=== PATIENT | female | born 1985 | race African-American/Black ===

== ENCOUNTER 2017-07-16 22:58 | Emergency (ER) | payer SELFPAY ==
[~2017-07-16] VITALS: Ht 152.4 cm; Wt 90.0 kg
[2017-07-17 04:16] LABS: BASOPHILS % 0.6 % (0.0-2.0); EOSINOPHILS % 1.2 % (0.0-5.0); HEMOGLOBIN. 14.4 g/dL (12.0-16.0); LYMPHOCYTES % 28.9 % (20.0-50.0); MEAN CORPUSCULAR VOLUME 80.9 fL (81.0-99.0); MEAN PLATELET VOLUME 8.8 fl (7.4-10.4); MONOCYTES % 4.9 % (2.0-8.0); NEUTROPHILS % 64.4 % (40.0-76.0); PLATELET 292 x1000/uL (130-400); RED BLOOD CELL COUNT 5.31 mill/uL (4.2-5.4); RED CELL DISTRIBUTION WIDTH 13.4 % (11.6-14.6)
[2017-07-17 04:23] LABS: CHLORIDE 103 mEq/L (98-107)
[2017-07-17 04:32] LABS: CARBON DIOXIDE 26 mEq/L (21-32)
[2017-07-17 05:05] VITALS: BP 117/65
[2017-07-17 05:36] LABS: CLARITY URINE CLEAR (CLEAR); COLOR URINE YELLOW (YELLOW); KETONES URINE NEGATIVE (NEGATIVE); LEUKOCYTE ESTERASE URINE NEGATIVE (NEGATIVE); NITRITE URINE NEGATIVE (NEGATIVE); OCCULT BLOOD URINE NEGATIVE (NEGATIVE); PH URINE 7.5 (4.5-8.0); PROTEIN URINE NEGATIVE (NEGATIVE); SPECIFIC GRAVITY URINE 1.009 (1.005-1.030); UROBILINOGEN URINE 0.2 E.U./dL (0.2-1.0)
== END 2017-07-17 05:52 | disposition home or self-care (01) ==
LOC: ER 22:58
DX: K21.9 Gastro-esophageal reflux disease without esophagitis (principal); M10.9 Gout, unspecified
CPT/HCPCS: 36415; 71010; 80053; 81003; 81025; 85025; 93005; 99285

== ENCOUNTER 2018-08-25 14:59 | Inpatient (IN) | payer MEDICAID ==
[~2018-08-25] VITALS: Ht 165.1 cm; Wt 88.5 kg
[2018-08-25] MEDS ORDERED: SODIUM CHLORIDE 0.9% 1000ML BAG (SEPSIS BOLUS) IV ONE (16:30)
[2018-08-25 17:18] LABS: CHLORIDE 100 mEq/L (98-107)
[2018-08-25 17:21] LABS: HEMATOCRIT. 45.5 % (36.0-48.0); HEMOGLOBIN. 15.1 g/dL (12.0-16.0); MEAN CORPUSCULAR HEMOGLOBIN 26.9 pg (28.0-32.0); MEAN PLATELET VOLUME 8.5 fl (7.4-10.4); PLATELET 272 x1000/uL (130-400); RED BLOOD CELL COUNT 5.61 mill/uL (4.2-5.4)
[2018-08-25 17:28] LABS: HCG SCREEN NEGATIVE
[2018-08-25 17:40] LABS: PLATELET ESTIMATE NORMAL
[2018-08-25 17:43] LABS: INR 1.1
[2018-08-25 18:07] LABS: CLARITY URINE CLEAR (CLEAR); COLOR URINE YELLOW (YELLOW); KETONES URINE TRACE (NEGATIVE); LEUKOCYTE ESTERASE URINE NEGATIVE (NEGATIVE); NITRITE URINE NEGATIVE (NEGATIVE); OCCULT BLOOD URINE 2+ (NEGATIVE); PROTEIN URINE NEGATIVE (NEGATIVE); SPECIFIC GRAVITY URINE 1.024 (1.005-1.030)
[2018-08-25] MEDS ORDERED: MORPHINE SULFATE 2 MG/ML CPJ (NOT FOR IM USE) IV ONE (19:45)
[2018-08-25] MEDS ORDERED: ONDANSETRON HCL 4MG/2ML INJ IV ONE (19:45)
[2018-08-25] MEDS ORDERED: CLONIDINE 0.1MG TABLET PO PRN (20:45)
[2018-08-25] MEDS ORDERED: ONDANSETRON HCL 4MG/2ML INJ IV PRN (20:45)
[2018-08-25] MEDS ORDERED: MAGNESIUM/ALUMINUM HYDROXIDE/SIMETHICONE 30ML UDC PO PRN (20:45)
[2018-08-25] MEDS ORDERED: ACETAMINOPHEN 325MG TABLET PO PRN (20:45)
[2018-08-25] MEDS ORDERED: DOCUSATE SODIUM 100MG CAPSULE PO PRN (20:45)
[2018-08-25] MEDS ORDERED: IPRATROPIUM/ALBUTEROL 0.5-3(2.5)MG/3ML NEB INH PRN (20:45)
[2018-08-25 20:51] LABS: *AMPHETAMINES SCREEN URINE NEGATIVE (NEGATIVE); *BARBITURATES SCREEN URINE NEGATIVE (NEGATIVE); *BENZODIAZEPINES SCREEN URINE NEGATIVE (NEGATIVE); *COCAINE SCREEN URINE NEGATIVE (NEGATIVE)
[2018-08-25 20:52] LABS: CANNABINOID URINE SCREEN NEGATIVE (NEGATIVE); METHADONE URINE SCREEN NEGATIVE (NEGATIVE); OPIATES URINE SCREEN NEGATIVE (NEGATIVE); PHENCYCLIDINE URINE SCREEN NEGATIVE (NEGATIVE)
[2018-08-25 22:13] LABS: CHLORIDE 104 mEq/L (98-107)
[2018-08-25 22:22] LABS: CREATINE KINASE 68 IU/L (26-192)
[2018-08-25 22:23] LABS: CREATINE KINASE MB FRACTION < 1.0 ng/mL (0.5-3.6)
[2018-08-25] MEDS ORDERED: CEFTRIAXONE 1 G PREMIX 50 ML IV ONE (23:00)
[2018-08-26] VITALS (25 sets, daily range): BP systolic 88–137; BP diastolic 43–79
[2018-08-26] MEDS: SODIUM CHLORIDE 0.9% 1,000 ML IV SCH ×3 (06:00→19:58)
[2018-08-26 08:30] LABS: BASOPHILS % 0.3 % (0.0-2.0); EOSINOPHILS % 0.1 % (0.0-5.0); HEMATOCRIT. 40.2 % (36.0-48.0); HEMOGLOBIN. 13.3 g/dL (12.0-16.0); MEAN CORPUSCULAR HEMOGLOBIN 26.9 pg (28.0-32.0); MEAN CORPUSCULAR VOLUME 81.4 fL (81.0-99.0); MEAN PLATELET VOLUME 8.6 fl (7.4-10.4); MONOCYTES % 7.2 % (2.0-8.0); NEUTROPHILS % 73.4 % (40.0-76.0); PLATELET 223 x1000/uL (130-400); RED BLOOD CELL COUNT 4.94 mill/uL (4.2-5.4)
[2018-08-26] MEDS: ENOXAPARIN 40MG/0.4ML SYR SUBCUT SCH (08:44)
[2018-08-26 09:04] LABS: LDL CHOLESTEROL 114 mg/dL (5-100)
[2018-08-26 09:05] LABS: CREATINE KINASE 60 IU/L (26-192)
[2018-08-26 09:06] LABS: HDL CHOLESTEROL 47 mg/dL (40-59)
[2018-08-26 09:08] LABS: CREATINE KINASE MB FRACTION < 1.0 ng/mL (0.5-3.6)
[2018-08-26] MEDS ORDERED: INFLUENZA VIRUS VACCINE(AFLURIA) 0.5ML SYR IM ONE (10:00)
[2018-08-27] VITALS (7 sets, daily range): BP systolic 87–156; BP diastolic 45–82
[2018-08-27] MEDS: SODIUM CHLORIDE 0.9% 1,000 ML IV SCH ×2 (07:04→11:06)
[2018-08-27] MEDS: ENOXAPARIN 40MG/0.4ML SYR SUBCUT SCH (09:00)
== END 2018-08-27 11:15 | disposition home or self-care (01) | DRG 54 ==
LOC: ER 14:59 → EDBEDREQ 20:36 → EDBEDREQTM 20:36 → EDBEDREQSVC 20:36 → ENRESERV 22:00 → EDBEDREQTM 22:42 → EDBEDREQSVC 22:42 → EDBEDREQTM 22:44 → ENRESERV 22:50 → 5EST 22:58
PROVIDERS: ADMIT Internal Medicine; ATTEND Internal Medicine
DX: G43.909 Migraine, unspecified, not intractable, without status migrainosus (principal); R65.10 Systemic inflammatory response syndrome (SIRS) of non-infectious origin without acute organ dysfunction; D72.829 Elevated white blood cell count, unspecified; N92.6 Irregular menstruation, unspecified
CPT/HCPCS: 36415; 71045; 74176; 80048; 80061; 80305; 82550; 82553; 83605; 83735; 84145; 84443; 84484; 84703; 85379; 87804; 90686; 93005; 93970; 96361; 96365; 96375; 99285; J0696; J1650; J2270; J2405; J7030; J7040

== ENCOUNTER 2022-06-26 08:38 | Emergency (ER) | payer MEDICAID, OTHER ==
[~2022-06-26] VITALS: Ht 167.6 cm; Wt 101.0 kg
[~2022-06-26 08:38] MED LIST: TUSSL MT
[2022-06-26] MEDS ORDERED: IBUPROFEN 600MG TABLET PO ONE (10:45)
[2022-06-26 11:02] VITALS: BP 115/64
[2022-06-26] MEDS ORDERED: TAM75 MT (11:05)
== END 2022-06-26 11:41 | disposition home or self-care (01) ==
LOC: ER 08:53
DX: J06.9 Acute upper respiratory infection, unspecified (principal); Z20.822 Contact with and (suspected) exposure to COVID-19
CPT/HCPCS: 87426; 87804; 99283; C9803